=== PATIENT | male | born 1985 | race African-American/Black ===

== ENCOUNTER 2016-07-17 08:33 | Emergency (ER) | payer OTHER ==
[~2016-07-17] VITALS: Ht 175.3 cm; Wt 90.7 kg
--- NOTE | 2016-07-17 08:33 | NUR ---
Patient was BIBA at this time and taken to bed 03 via gurney per EMS.
--- NOTE | 2016-07-17 08:38 | NUR ---
31M BIBA FROM HOME C/O RT LOWER ABDOMINAL PAIN, ACHING, NON-RADIATING, 10/10 X YESTERDAY; ABDOMEN SOFT, NON-TENDER, ACTIVE BOWEL SOUNDS X 4 QUADRANTS; PT C/O 1 EPISODE OF VOMITING THIS MORNING, BUT DENIES DIARRHEA AT THIS TIME; PT STATES UNABLE TO URINATE X 0600 TODAY; A&OX4, PERRL, BL LUNG SOUNDS CLEAR, RR EVEN/UNLABORED, SKIN IS WARM/DRY/INTACT AT THIS TIME; PT RESTING IN BED W/ HOB ELEVATED AND IN LOWEST POSITION; POSITIONED FOR COMFORT; ER MD MADE AWARE OF STATUS. WILL CONTINUE TO MONITOR.
[2016-07-17 08:39] VITALS: BP 152/90
--- NOTE | 2016-07-17 08:46 | NUR ---
ER MD DR. HUANG EVALUATING PT AT BEDSIDE.
--- NOTE | 2016-07-17 09:27 | NUR ---
PT TAKEN TO CT VIA W/C ACCOMPANIED BY ENVIRONMENTAL SCIENCE INSTRUCTOR.
[2016-07-17 09:31] LABS: BASOPHILS # (AUTO) 0.1 K/uL (0.00-0.22); BASOPHILS % (AUTO) 1.9 % (0.0-2.0); EOSINOPHILS # (AUTO) 0.1 K/uL (0-0.4); EOSINOPHILS % (AUTO) 1.8 % (0.0-4.0); HEMATOCRIT 45.9 % (36-52); HEMOGLOBIN 15.1 g/dL (12.0-18.0); LYMPHOCYTES # (AUTO) 0.9 K/uL (2.0-11.5); LYMPHOCYTES % (AUTO) 11.8 % (20.5-51.1); MEAN CORPUSCULAR HEMOGLOBIN 29 pg (27-31); MEAN CORPUSCULAR HGB CONC 33 g/dL (33-37); MEAN CORPUSCULAR VOLUME 89 fL (80-94); MONOCYTES # (AUTO) 0.6 K/uL (0.8-1.0); MONOCYTES % (AUTO) 7.8 % (1.7-9.3); NEUTROPHILS # (AUTO) 5.9 K/uL (1.8-7.7); NEUTROPHILS % (AUTO) 76.7 % (42.2-75.2); PLATELET COUNT (AUTO) 247 K/uL (140-450); RED BLOOD CELL COUNT(AUTO) 5.16 MIL/uL (4.20-6.10); RED CELL DISTRIBUTION WIDTH 13.1 % (11.6-13.7); WHITE BLOOD COUNT (AUTO) 7.6 K/uL (4.8-10.8)
[2016-07-17 09:37] LABS: ANION GAP 12.6 (8-16); CARBON DIOXIDE 25.3 mmol/L (21-32); POTASSIUM 3.9 mmol/L (3.5-5.1)
[2016-07-17 09:42] LABS: APPEARANCE,URINE CLOUDY (CLEAR); BILIRUBIN,URINE NEGATIVE (NEGATIVE); BLOOD, URINE 3+ (NEGATIVE); COLOR,URINE RED (YELLOW); LEUKOCYTE ESTERASE ,URINE NEGATIVE (NEGATIVE); NITRITE, URINE NEGATIVE (NEGATIVE); PH,URINE 6.5 (5.0-9.0); PROTEIN,URINE 2+ (NEGATIVE); UGLUCOSE NEGATIVE (NEGATIVE); UROBILINOGEN,URINE 0.2 EU/dL (0.2 - 1)
[2016-07-17 09:43] LABS: ALBUMIN 4.2 g/dL (3.4-5.0); TOTAL BILIRUBIN 0.4 mg/dL (0.0-1.0); TOTAL PROTEIN, SERUM 7.9 g/dL (6.4-8.2)
--- NOTE | 2016-07-17 09:43 | NUR ---
Patient back from CT via [facility].
[2016-07-17 09:55] LABS: BACTERIA,URINE None Seen /HPF (None Seen); RBC,URINE TOO NUMEROUS TO COUN /HPF (0-5); SQUAMOUS EPITHELIAL CELL,UR None Seen /LPF (0-3 (FEW)); WBC,URINE 0-5 (RARE) /HPF (0-5)
[2016-07-17] MEDS ORDERED: NACL 0.9% 1,000 ML IV ONE (10:05)
--- NOTE | 2016-07-17 10:08 | NUR ---
PT STATES ABDOMINAL PAIN 0/10 AT THIS TIME; VSS STABLE; PT APPEARS TO BE RESTING COMFORTABLY IN BED RR EVEN/UNLABORED, WILL CONTINUE TO MONITOR.
--- NOTE | 2016-07-17 10:21 | NUR ---
PT AMBULATED TO THE RESTROOM.
--- NOTE | 2016-07-17 10:27 | NUR ---
PT STATES ABLE TO URINATE; PT STATED " YEAH, I WAS ABLE TO PEE A LOT, IT WAS EASY, DIDN'T HURT BUT BLOOD STILL CAME OUT"; NO ACUTE DISTRESS NOTED AT THIS TIME; INFORMED ER MD DR. HUANG; WILL CONTINUE TO MONITOR.
--- NOTE | 2016-07-17 10:38 | NUR ---
PER ER MD DR. HUANG, NO URINARY CATHETER NEEDED PT ABLE TO URINATE. WILL CONTINUE TO FOLLOW.
[2016-07-17] MEDS ORDERED: NACL 0.9% 1,000 ML IV SCH (10:43)
[2016-07-17] MEDS ORDERED: ACETAMINOPHEN 325 MG TAB PO PRN (10:45)
[2016-07-17] MEDS ORDERED: MORPHINE SULFATE 2 MG/ML SYR IVP PRN (10:45)
[2016-07-17] MEDS ORDERED: LORazepam 2 MG/ML VIAL IVP PRN (10:45)
[2016-07-17] MEDS ORDERED: HYDROcodone/APAP 5/325 MG 1 TAB TAB PO PRN (10:45)
[2016-07-17] MEDS ORDERED: ONDANSETRON 4 MG/2 ML VIAL IVP PRN (10:45)
[2016-07-17] MEDS ORDERED: ALBUTEROL 0.083% 2.5 MG/3 ML NEBU IH PRN (10:45)
--- NOTE | 2016-07-17 10:49 | NUR ---
Dr. Cagle at bedside to evaluate patient.
--- NOTE | 2016-07-17 11:02 | NUR ---
PT BLADDER SCAN SHOWED 135ML OF URINE; ER MD DR. HUANG NOTIFIED; PT DENIES ANY ACUTE DISTRESS AT THIS TIME; WILL CONTINUE TO MONITOR.
[2016-07-17 11:12] LABS: AMPHETAMINE, URINE NEG. ng/ml (NEG <=1000); BARBITURATE, URINE NEG. ng/ml (NEG <=200); BENZODIAZEPINE, URINE NEG. ng/mL (NEG <=200); CANNABINOID, URINE POS. ng/mL (NEG <=50); COCAINE, URINE NEG. ng/mL (NEG <=300); OPIATE, URINE NEG. ng/mL (NEG <=2000); PHENCYCLIDINE SCREEN,URINE NEG. ng/mL (NEG <=25)
--- NOTE | 2016-07-17 11:19 | NUR ---
PER ER MD DR. HUANG, DO NOT CALL REPORT UNTIL CT W/ CONTRAST RESULTS RETURN; WILL CONTINUE TO MONITOR PT.
--- NOTE | 2016-07-17 11:19 | NUR ---
PT TAKEN TO CT VIA W/C ACCOMPANIED BY SOIL TESTER.
--- NOTE | 2016-07-17 11:44 | NUR ---
Patient back from CT via wheelchair per tech.
[2016-07-17 12:32] VITALS: BP 114/61
--- NOTE | 2016-07-17 12:33 | NUR ---
Patient discharged with v/s stable. Written and verbal after care instructions given and explained. Patient verbalized understanding. Ambulatory with steady gait. All questions addressed prior to discharge. Advised to follow up with PMD.
--- NOTE | 2016-07-17 12:36 | NUR ---
PATIENT WAS DISCHARGED HOME TO FOLLOW UP OUT PATIENT ALL ADMIT ORDERS ARE CANCELED.
== END 2016-07-17 12:25 | disposition home or self-care (01) ==
LOC: MED 08:33 → UNDOADMIN 10:45 → MTU 10:45 → MED 12:25
DX: R10.31 Right lower quadrant pain (principal); R31.9 Hematuria, unspecified; R33.9 Retention of urine, unspecified; F17.200 Nicotine dependence, unspecified, uncomplicated; Z88.0 Allergy status to penicillin; Z88.2 Allergy status to sulfonamides; Z98.890 Other specified postprocedural states
CPT/HCPCS: 36415; 74176; 74177; 80053; 80305; 81001; 85025; 96360; 99285; J7030; Q9967